=== PATIENT | female | born 1990 | race African-American/Black ===

== ENCOUNTER 2020-05-13 12:20 | Emergency (ER) | payer MEDICAID ==
[~2020-05-13] VITALS: Ht 154.9 cm; Wt 96.0 kg
[2020-05-13] MEDS ORDERED: SODIUM CHLORIDE 0.9% 1,000 ML IV ONE (12:45)
[2020-05-13 13:42] LABS: CLARITY URINE CLOUDY (CLEAR); COLOR URINE YELLOW (YELLOW); KETONES URINE TRACE (NEGATIVE); LEUKOCYTE ESTERASE URINE TRACE (NEGATIVE); NITRITE URINE NEGATIVE (NEGATIVE); OCCULT BLOOD URINE NEGATIVE (NEGATIVE); PH URINE 6.5 (4.5-8.0); PROTEIN URINE NEGATIVE (NEGATIVE); SPECIFIC GRAVITY URINE 1.033 (1.005-1.030); UROBILINOGEN URINE 0.2 E.U./dL (0.2-1.0)
[2020-05-13 14:11] LABS: *BENZODIAZEPINES SCREEN URINE NEGATIVE (NEGATIVE); *COCAINE SCREEN URINE NEGATIVE (NEGATIVE); METHADONE URINE SCREEN NEGATIVE (NEGATIVE); OPIATES URINE SCREEN NEGATIVE (NEGATIVE)
[2020-05-13 14:12] LABS: *AMPHETAMINES SCREEN URINE NEGATIVE (NEGATIVE); *BARBITURATES SCREEN URINE NEGATIVE (NEGATIVE); CANNABINOID URINE SCREEN NEGATIVE (NEGATIVE); PHENCYCLIDINE URINE SCREEN NEGATIVE (NEGATIVE)
[2020-05-13 14:44] LABS: BASOPHILS % 0.6 % (0.0-2.0); EOSINOPHILS % 0.6 % (0.0-5.0); HEMATOCRIT. 36.1 % (36.0-48.0); HEMOGLOBIN. 11.5 g/dL (12.0-16.0); LYMPHOCYTES % 16.4 % (20.0-50.0); MEAN CORPUSCULAR VOLUME 88.2 fL (81.0-99.0); MEAN PLATELET VOLUME 8.7 fl (7.4-10.4); MONOCYTES % 7.3 % (2.0-8.0); NEUTROPHILS % 75.1 % (40.0-76.0); PLATELET 273 x1000/uL (130-400); RED BLOOD CELL COUNT 4.09 mill/uL (4.2-5.4); RED CELL DISTRIBUTION WIDTH 16.2 % (11.6-14.6)
[2020-05-13 14:50] VITALS: BP 132/77
[2020-05-13 14:51] LABS: CHLORIDE 111 mEq/L (98-107)
[2020-05-13 14:55] LABS: HCG SCREEN NEGATIVE
== END 2020-05-13 16:55 | disposition home or self-care (01) ==
LOC: ER 13:26
DX: R00.2 Palpitations (principal); Z98.890 Other specified postprocedural states
CPT/HCPCS: 36415; 71045; 80053; 80305; 81003; 81025; 83880; 84443; 84484; 84703; 85025; 85379; 93005; 99285; J7030; Z7610

== ENCOUNTER 2023-04-14 22:10 | Emergency (ER) | payer MEDICAID ==
[~2023-04-14] VITALS: Ht 154.9 cm; Wt 109.0 kg
[2023-04-14 22:54] VITALS: BP 140/87; PULSE 99; RESP 16; TEMP 98.7; O2SAT 99
[2023-04-15] MEDS ORDERED: AMOX1TAB16 MT (00:10)
[2023-04-15] MEDS ORDERED: TOPUD MT (00:10)
[2023-04-15] MEDS: TETANUS, DIPHTHERIA, PERTUSSIS VAC/PF 0.5ML (>10YR OLD) IM ONE (00:28)
[2023-04-15] MEDS: ACETAMINOPHEN 325MG TABLET PO ONE (00:29)
== END 2023-04-15 00:52 | disposition home or self-care (01) ==
LOC: ER 22:10
DX: S61.512A Laceration without foreign body of left wrist, initial encounter (principal); Z98.890 Other specified postprocedural states; W54.0XXA Bitten by dog, initial encounter; Y93.89 Activity, other specified; Y92.89 Other specified places as the place of occurrence of the external cause; Y99.9 Unspecified external cause status
CPT/HCPCS: 73110; 99283; 90715; 90471; Z7610

== ENCOUNTER 2023-11-19 12:20 | Emergency (ER) | payer MEDICAID ==
[~2023-11-19] VITALS: Ht 154.9 cm; Wt 116.0 kg
[~2023-11-19 12:20] MED LIST: AMOX1TAB16 MT; TOPUD MT
[2023-11-19 12:32] VITALS: O2SAT 98
[2023-11-19 13:33] LABS: BASOPHILS % 0.3 % (0.0-2.0); EOSINOPHILS % 0.8 % (0.0-5.0); HEMATOCRIT. 42.5 % (36.0-48.0); HEMOGLOBIN. 13.8 g/dL (12.0-16.0); LYMPHOCYTES % 11.9 % (20.0-50.0); MEAN CORPUSCULAR HEMOGLOBIN 31.4 pg (28.0-32.0); MEAN CORPUSCULAR HGB CONC 32.5 g/dL (31.0-37.0); MEAN CORPUSCULAR VOLUME 96.9 fL (81.0-99.0); MEAN PLATELET VOLUME 8.4 fl (7.4-10.4); MONOCYTES % 6.8 % (2.0-8.0); NEUTROPHILS % 80.2 % (40.0-76.0); PLATELET 282 x1000/uL (130-400); RED BLOOD CELL COUNT 4.38 mill/uL (4.2-5.4); WHITE BLOOD COUNT 12.3 x1000/uL (4.5-11.0)
[2023-11-19 13:40] LABS: CHLORIDE 109 mEq/L (98-107); POTASSIUM 3.5 mEq/L (3.5-5.1); SODIUM 138 mEq/L (136-145)
[2023-11-19 13:41] LABS: CARBON DIOXIDE 21 mEq/L (21-32)
[2023-11-19 13:42] LABS: CALCIUM 9.5 mg/dL (8.7-10.4)
[2023-11-19 13:46] LABS: CREATININE 0.7 mg/dL (0.6-1.0); GLUCOSE 88 mg/dL (70-105); UREA NITROGEN BLOOD 6 mg/dL (9-23)
[2023-11-19] MEDS: CEFTRIAXONE 1GM/50ML 50 ML IV ONE (14:45)
[2023-11-19] MEDS: VANCOMYCIN 1G PREMIX 200 ML IV ONE (14:45)
[2023-11-19] MEDS: SODIUM CHLORIDE 0.9% 1000ML BAG (SEPSIS BOLUS) IV ONE (15:11)
[2023-11-19 16:48] LABS: LACTATE DEHYDROGENASE 184 IU/L (120-246)
[2023-11-19] MEDS ORDERED: SULF1TAB48 MT (17:44)
[2023-11-19] MEDS ORDERED: CEPH500C2 MT (17:44)
[2023-11-19 18:54] VITALS: BP 147/96; PULSE 88; RESP 16; TEMP 36.50292; O2SAT 100
== END 2023-11-19 19:11 | disposition home or self-care (01) ==
LOC: ER 12:20
DX: A41.9 Sepsis, unspecified organism (principal); R65.20 Severe sepsis without septic shock; N61.1 Abscess of the breast and nipple; Z91.013 Allergy to seafood
CPT/HCPCS: 99291; 96374; 96361; 96375; 80048; 83605; 83615; 85025; 87040; 36415; 71045; 76641; 93005; J0696; J3370; J7030

== ENCOUNTER 2024-03-12 12:23 | Emergency (ER) | payer MEDICAID ==
[~2024-03-12] VITALS: Ht 154.9 cm; Wt 115.7 kg
[~2024-03-12 12:23] MED LIST changes: +CEPH500C2 MT; +SULF1TAB48 MT
[2024-03-12 12:35] VITALS: BP 160/91; TEMP 99.6; O2SAT 100
[2024-03-12] MEDS ORDERED: BENZ100C86 MT (17:01)
[2024-03-12] MEDS ORDERED: P20 MT (17:01)
[2024-03-12] MEDS ORDERED: ALBU18HF2 IH (17:01)
[2024-03-12 17:40] VITALS: PULSE 86; RESP 16; O2SAT 100
== END 2024-03-12 17:41 | disposition home or self-care (01) ==
LOC: ER 12:23
DX: J06.9 Acute upper respiratory infection, unspecified (principal); F41.9 Anxiety disorder, unspecified; Z20.822 Contact with and (suspected) exposure to COVID-19; Z98.890 Other specified postprocedural states; Z88.8 Allergy status to other drugs, medicaments and biological substances
CPT/HCPCS: 71045; 87426; 87804; 99284